=== PATIENT | male | born 1965 | race Caucasian/White ===

== ENCOUNTER 2024-05-18 16:09 | Emergency (ER) | payer OTHER ==
[~2024-05-18] VITALS: Ht 175.3 cm; Wt 99.7 kg
[~2024-05-18 16:09] MED LIST: KAPSPARGO SPRIN25 MG
[2024-05-18 18:16] VITALS: BP 140/96
[2024-05-18 18:30] VITALS: BP 127/88
[2024-05-18 18:46] VITALS: BP 127/88
== END 2024-05-18 18:48 | disposition home or self-care (01) | DRG 594 ==
LOC: ED 16:09
DX: L89.610 Pressure ulcer of right heel, unstageable (principal); E11.9 Type 2 diabetes mellitus without complications